=== PATIENT | female | born 1995 | race Caucasian/White ===

== ENCOUNTER 2019-11-24 19:24 | Emergency (ER) | payer BC ==
--- NOTE | 2019-11-24 19:33 | EDM.PDOC ---
ED HPI GENERAL MEDICAL PROBLEM - General Stated Complaint: RIGHT RING FINGER LACERATION Time Seen by Provider: 11/24/19 19:32 Source of Information: Reports: Patient History Limitations: Reports: No Limitations - History of Present Illness INITIAL COMMENTS - FREE TEXT/NARRATIVE: 24-year-old female presents with laceration to the right fourth digit 30 minutes prior to arrival. She was slicing cucumber with her right hand in the kitchen when it happened. She sliced off a piece of her finger over the slicer, it was actively bleeding and she wrapped it with a Band-Aid and dressing. Her tetanus is not up-to-date. ROS: A 10-point review of systems, other than pertinent positives and negatives as stated per HPI, is otherwise negative PHYSICAL EXAM General: AOx4, GCS = 15, No distress HEENT: dry mucous membrane Neck: supple, no meningismus, no Kernig or Brudzinski Cardiac: S1S2 RRR Respiratory: CTAB, no crackles or rales, no wheezing Abdomen: Soft, nontender, no rebound or guarding, nondistended, no pulsatile mass. Back: nontender Musculoskeletal: NVI distally, 1cm by 4cm superficial skin avulsion over the do rsal aspect of right 4th digit middle phalanx, nml ROM with extending right 4th MCP/PIP/DIP joint. Neuro: No focal deficits. - Related Data Allergies Allergy/AdvReac Type Severity Reaction Status Date / Time No Known Allergies Allergy Verified 11/24/19 19:50 Review of Systems - Review of Systems Review Of Systems: Comprehensive ROS is negative, except as noted in HPI. ED EXAM, GENERAL - Physical Exam Exam: See Below (see dictation) ED TRAUMA EXTREMITY PROCEDURES - Laceration/Wound Repair Right Dorsal Digit - 4th (Ring) Lac/Wound Length In cm: 4 Appearance: Superficial Distal NVT: Neuro & Vascular Intact, No Tendon Injury Skin Prep: Saline Saline Irrigation (cc's): 20 Exploration/Debridement/Repair: Wound Explored, In a Bloodless Field, Explored to Base, No Foreign Material Found Sterile Dressing Applied: Other (wet to dry dressing) Tetanus Status Addressed: Yes Complications: No Course - Vital Signs Last Recorded V/S: Last Vital Signs Temp 98.0 F 11/24/19 19:40 Pulse 84 11/24/19 19:40 Resp 18 11/24/19 19:40 BP 130/92 H 11/24/19 19:40 Pulse Ox 97 11/24/19 19:40 - Orders/Labs/Meds Orders: Active Orders 24 hr Category Date Time Status Communication Order [RC] STAT Care 11/24/19 19:58 Ordered Vaccines to be Administered [RC] PER UNIT ROUTINE Care 11/24/19 19:58 Ordered Meds: Medications Discontinued Medications Generic Name Dose Route Start Last Admin Trade Name Kiet PRN Reason Stop Dose Admin Diphtheria/Tetanus/Acell Pertussis 0.5 ml 11/24/19 19:58 Adacel IM 11/24/19 19:59 .ONCE ONE - Re-Assessments/Exams Free Text/Narrative Re-Assessment/Exam: 11/24/192009 After treatments, she improved clinically and is stable for discharge. I performed a repeat examination and the patient has not demonstrated any new abnormal findings. Patient exhibits normal vital signs. I advised the patient to return to the ER for reevaluation if symptoms worsened, and to follow up with their PCP within 2-3 days. MEDICAL DECISION MAKING: I reviewed the patients past medical records, lab and radiographic findings. I discussed the case with the patient. My differential diagnosis included: Skin avulsion, laceration, tendon injury. She has normal range of motion at the PIP joint, MCP joint, DIP joint with extension, the avulsion is superficial and I do not see underlying tendon injury. Wound was irrigated and cleaned and dressed with wet to dry dressing. I gave her strict return precautions for fever, chills, swelling to the right fourth digit, worsening pain, purulent drainage. Departure - Departure Time of Disposition: 20:00 Disposition: Home, Self-Care 01 Condition: Good Clinical Impression: Avulsion of skin of finger - Discharge Information *PRESCRIPTION DRUG MONITORING PROGRAM REVIEWED*: Not Applicable *COPY OF PRESCRIPTION DRUG MONITORING REPORT IN PATIENT LENA: Not Applicable Instructions: Wound Care, Adult, Skin Tear, [id number] Referrals: PCP,None [Primary Care Provider] - 1 Week Additional Instructions: The following information is given to patients seen in the emergency department who are being discharged to home. This information is to outline your options for follow-up care. We provide all patients seen in our emergency department with a follow-up referral. The need for follow-up, as well as the timing and circumstances, are variable depending upon the specifics of your emergency department visit. If you don't have a primary care physician on staff, we will provide you with a referral. We always advise you to contact your personal physician following an emergency department visit to inform them of the circumstance of the visit and for follow-up with them and/or the need for any referrals to a consulting specialist. The emergency department will also refer you to a specialist when appropriate. This referral assures that you have the opportunity for follow-up care with a specialist. All of these measure are taken in an effort to provide you with optimal care, which includes your follow-up. Under all circumstances we always encourage you to contact your private physician who remains a resource for coordinating your care. When calling for follow-up care, please make the office aware that this follow-up is from your recent emergency room visit. If for any reason you are refused follow-up, please contact the [facility] Emergency Department at and asked to speak to the emergency department charge nurse. If you do not have a primary care doctor, please follow up with the clinics below within 3-5 days. [facility] - Primary Care [address] [place] [id number] [facility] [address] [place] [address] Sepsis Event Note (ED) - Focused Exam Vital Signs: Vital Signs Temp Pulse Resp BP Pulse Ox 11/24/19 19:40 98.0 F 84 18 130/92 H 97 - My Orders Last 24 Hours: My Active Orders 11/24/19 19:58 Communication Order [RC] STAT Vaccines to be Administered [RC] PER UNIT ROUTINE - Assessment/Plan Last 24 Hours: My Active Orders 11/24/19 19:58 Communication Order [RC] STAT Vaccines to be Administered [RC] PER UNIT ROUTINE
[2019-11-24] MEDS ORDERED: Diphtheria,Pertussis(Acell),Tetanus Vaccine 0.5 ML Syringe IM ONE (19:58)
[2019-11-24] MEDS ORDERED: Bacitracin Oint 1 GM U/D Packet TOP ONE (20:16)
== END 2019-11-24 20:48 | disposition home or self-care (01) ==
LOC: MW.ED 19:24
DX: S61.214A Laceration without foreign body of right ring finger without damage to nail, initial encounter (principal); Z23 Encounter for immunization; W26.8XXA Contact with other sharp object(s), not elsewhere classified, initial encounter; Y92.000 Kitchen of unspecified non-institutional (private) residence as the place of occurrence of the external cause
CPT/HCPCS: 12002; 90471; 90715; 99282; 99282-25